=== PATIENT | male | born 1945 | race Caucasian/White ===

== ENCOUNTER 2016-12-13 12:08 | Emergency (ER) | payer MEDICARE, MEDICAID ==
[~2016-12-13] VITALS: Ht 180.3 cm; Wt 95.0 kg
[2016-12-13] MEDS ORDERED: OMEP20 PO (12:24)
[2016-12-13] MEDS ORDERED: POTA10CA44 PO (12:24)
[2016-12-13] MEDS ORDERED: HYDR-3971 PO (12:24)
[2016-12-13] MEDS ORDERED: SERT50TA12 PO (12:24)
[2016-12-13] MEDS ORDERED: ASPI81 PO (12:24)
[2016-12-13] MEDS ORDERED: PENT400 PO (12:24)
[2016-12-13] MEDS ORDERED: FURO20 PO (12:24)
[2016-12-13] MEDS ORDERED: METO-323 PO (12:24)
[2016-12-13] MEDS ORDERED: DSS100 PO (12:24)
[2016-12-13] MEDS ORDERED: IPRA4AER IH (12:24)
[2016-12-13] MEDS ORDERED: LEVO150 PO (12:24)
[2016-12-13] MEDS ORDERED: TAMS0.4C32 PO (12:24)
[2016-12-13 12:55] LABS: BASOPHILS % (AUTO) 0.7 % (0.0-2.0); EOSINOPHILS % (AUTO) 1.7 % (1.0-6.0); HEMATOCRIT 36.3 % (41-53); HEMOGLOBIN 11.7 g/dL (13.5-17.5); LYMPHOCYTES # (AUTO) 1.8 K/uL (1.0-4.8); LYMPHOCYTES % (AUTO) 17.2 % (22.0-44.0); MEAN CORPUSCULAR HEMOGLOBIN 25.2 pg (26.0-34.0); MEAN CORPUSCULAR HGB CONC 32.3 G/dL (31.0-37.0); MEAN CORPUSCULAR VOLUME 78 fL (80-100); MONOCYTES # (AUTO) 0.7 K/uL (0.1-1.0); MONOCYTES % (AUTO) 6.3 % (2.0-9.0); NEUTROPHILS # (AUTO) 7.9 K/uL (1.8-7.7); NEUTROPHILS % (AUTO) 74.1 % (40.0-70.0); PLATELET COUNT (AUTO) 343 K/uL (150-450); RED BLOOD CELL COUNT(AUTO) 4.66 MIL/uL (4.50-5.90); RED CELL DISTRIBUTION WIDTH 19.4 % (11.5-14.5); WHITE BLOOD COUNT (AUTO) 10.7 K/uL (4.5-11.0)
[2016-12-13 13:09] LABS: ANION GAP 10 mmol/L (8-16); CALCIUM, TOTAL 8.8 mg/dL (8.8-10.5); CARBON DIOXIDE 27 mmol/L (22-29); CHLORIDE 101 mmol/L (98-107); CREATININE 0.83 mg/dL (0.60-1.30); GLOMERULAR FILTR. RATE CALC > 60 mL/min (>60); POTASSIUM 3.6 mmol/L (3.5-5.1); SODIUM SERUM 138 mmol/L (136-145); UREA NITROGEN, BLOOD 19 mg/dL (7-18)
[2016-12-13 13:18] LABS: ALANINE AMINOTRANSFERASE 13 U/L (12-78); ALBUMIN 3.1 g/dL (3.4-5.0); ASPARTATE AMINOTRANSFERASE 13 U/L (15-37); BILIRUBIN,TOTAL 0.3 mg/dL (0.1-1.0); TOTAL PROTEIN, SERUM 8.9 g/dL (6.4-8.2)
[2016-12-13 13:23] LABS: RBC MORPHOLOGY COMMENT ABNORMAL RBC MORPH
[2016-12-13 15:30] VITALS: BP 128/69
== END 2016-12-13 15:36 | disposition home or self-care (01) ==
LOC: EEVIPCON 12:12 → EMS 12:12
DX: F41.9 Anxiety disorder, unspecified (principal); F32.9 Major depressive disorder, single episode, unspecified; E11.9 Type 2 diabetes mellitus without complications; I10 Essential (primary) hypertension; E03.9 Hypothyroidism, unspecified; Z79.82 Long term (current) use of aspirin
CPT/HCPCS: 36415; 80053; 85025; 99284; G0480

== ENCOUNTER 2017-05-23 11:39 | Inpatient (IN) | payer MEDICARE, MEDICAID, OTHER ==
[~2017-05-23] VITALS: Ht 180.3 cm; Wt 87.0 kg
[~2017-05-23 11:39] MED LIST: ACET-2902 PO; ATOR20TA86 PO; AUD NEB; BUDE0.5A3 NEB; DSS100 PO; FURO20 PO; IPRA4AER IH; IPRNEB NEB; LEVO150 PO; LISI-661 PO; METO25XL PO; MV-M1TAB2 PO; OMEP20 PO; ONDA4 PO; POTA10CA44 PO; RISP.5 PO; SERT50TA12 PO; TAMS0.4C32 PO; ZOLP5 PO
[2017-05-23] MEDS ORDERED: ALBUTEROL SULFATE 5 MG/ML 20 ML NEB SOLN [BULK] NEB ONE ×2 (12:00→15:00)
[2017-05-23] MEDS ORDERED: IPRATROPIUM BROMIDE 0.5 MG/2.5 ML NEB SOLUTION NEB ONE ×2 (12:00→15:00)
[2017-05-23 12:12] LABS: GLUCOSE,POINT OF CARE 83 MG/DL (70-110)
[2017-05-23 12:20] LABS: BASOPHILS % (AUTO) 0.1 % (0.0-2.0); EOSINOPHILS % (AUTO) 0.5 % (1.0-6.0); HEMATOCRIT 30.6 % (41-53); HEMOGLOBIN 10.2 g/dL (13.5-17.5); LYMPHOCYTES # (AUTO) 0.9 K/uL (1.0-4.8); LYMPHOCYTES % (AUTO) 4.9 % (22.0-44.0); MEAN CORPUSCULAR HEMOGLOBIN 25.9 pg (26.0-34.0); MEAN CORPUSCULAR HGB CONC 33.3 G/dL (31.0-37.0); MEAN CORPUSCULAR VOLUME 78 fL (80-100); MONOCYTES # (AUTO) 0.9 K/uL (0.1-1.0); MONOCYTES % (AUTO) 5.1 % (2.0-9.0); NEUTROPHILS # (AUTO) 16.3 K/uL (1.8-7.7); PLATELET COUNT (AUTO) 384 K/uL (150-450); RED BLOOD CELL COUNT(AUTO) 3.94 MIL/uL (4.50-5.90); RED CELL DISTRIBUTION WIDTH 19.8 % (11.5-14.5); WHITE BLOOD COUNT (AUTO) 18.2 K/uL (4.5-11.0)
[2017-05-23 12:22] LABS: NEUTROPHILS % (AUTO) 89.4 % (40.0-70.0)
[2017-05-23 12:32] LABS: ANION GAP 7 mmol/L (8-16); CALCIUM, TOTAL 10.4 mg/dL (8.8-10.5); CARBON DIOXIDE 30 mmol/L (22-29); CHLORIDE 97 mmol/L (98-107); CREATININE 0.76 mg/dL (0.60-1.30); GLOMERULAR FILTR. RATE CALC > 60 mL/min (>60); POTASSIUM 3.3 mmol/L (3.5-5.1); SODIUM SERUM 134 mmol/L (136-145); UREA NITROGEN, BLOOD 12 mg/dL (7-18)
[2017-05-23 12:38] LABS: ALANINE AMINOTRANSFERASE 23 U/L (12-78); ALBUMIN 1.9 g/dL (3.4-5.0); ASPARTATE AMINOTRANSFERASE 23 U/L (15-37); BILIRUBIN,TOTAL 0.4 mg/dL (0.1-1.0); CREATINE KINASE, TOTAL 20 U/L (39-308); RBC MORPHOLOGY COMMENT ABNORMAL RBC MORPH; TOTAL PROTEIN, SERUM 6.8 g/dL (6.4-8.2)
[2017-05-23 12:45] LABS: B-TYPE NATRIURETIC PEPTIDE 91 pg/mL (0-100)
[2017-05-23 12:59] LABS: THYROID STIMULATING HORMONE 3.78 uIU/mL (0.36-3.74)
[2017-05-23 13:49] LABS: ABG A-A DIFF O2 641.6 mmHg (10-20.0); ABG BASE EXCESS 4.7 mmol/L (-2.0-3.0); ABG OXYHEMOGLOBIN 34.6 % (94.0-100.0); ABG PCO2 49 mmHg (35-45); TEMPERATURE, FAHRENHEIT, BG 98.6 FAHREN (96.0-98.6)
[2017-05-23 13:51] LABS: ALLEN TEST, BLOOD GAS Positive
[2017-05-23] MEDS ORDERED: SODIUM CHLORIDE 0.9% 500 ML IV ONE (14:00)
[2017-05-23] MEDS ORDERED: LEVOFLOXACIN 750 MG/D5% WATER 150 ML IV ONE (14:00)
[2017-05-23] MEDS ORDERED: PIPERACILLIN/TAZO 3.375 GM/D5W 50 ML IV ONE (14:00)
[2017-05-23] MEDS ORDERED: POTASSIUM CHLORIDE 20 MEQ ER TABLET PO ONE (14:30)
[2017-05-23 14:40] LABS: ADD UA MICROSCOPIC NO; APPEARANCE,URINE CLEAR (CLEAR); GLUCOSE, URINE (UA) NEGATIVE (NEGATIVE); KETONES,URINE NEGATIVE (NEGATIVE); LEUKOCYTE ESTERASE ,URINE NEGATIVE (NEGATIVE); OCCULT BLOOD,URINE NEGATIVE (NEGATIVE); PH,URINE 6.5 (5.0-8.0); PROTEIN,URINE NEGATIVE (NEGATIVE)
[2017-05-23 16:26] LABS: ABG BASE EXCESS 2.7 mmol/L (-2.0-3.0); ABG HCO3 25.5 mmol/L (22.0-26.0); ABG PCO2 53 mmHg (35-45); ABG PH 7.345 (7.35-7.450); TEMPERATURE, FAHRENHEIT, BG 98.6 FAHREN (96.0-98.6)
[2017-05-23 16:27] LABS: ABG A-A DIFF O2 629.5 mmHg (10-20.0)
[2017-05-23 16:29] LABS: ALLEN TEST, BLOOD GAS POS
[2017-05-23] MEDS ORDERED: MAGNESIUM HYDROXIDE SUSPENSION 30 ML UDCUP PO PRN (16:45)
[2017-05-23] MEDS ORDERED: *CLINICAL-LEVOFLOXACIN IVPB DOSING CLINICAL ONE ×2 (16:45)
[2017-05-23] MEDS ORDERED: BISACODYL 10 MG RECTAL RECTAL SUPPOSITORY PR PRN (16:45)
[2017-05-23] MEDS ORDERED: ONDANSETRON HCL 4 MG/2 ML VIAL IVP PRN (16:45)
[2017-05-23 17:37] VITALS: BP 93/50
[2017-05-23] MEDS: IPRATROPIUM BROMIDE 0.5 MG/2.5 ML NEB SOLUTION NEB SCH ×2 (19:48→23:25)
[2017-05-23] MEDS: ALBUTEROL SULFATE 2.5 MG/0.5 ML NEB SOLUTION NEB SCH ×2 (19:48→23:25)
[2017-05-23 20:00] VITALS: BP 103/53
[2017-05-23] MEDS ORDERED: SODIUM CHLORIDE 0.9% 250 ML IV ONE (21:19)
[2017-05-23] MEDS: PIPERACILLIN/TAZO 3.375 GM/D5W 50 ML IV SCH (21:22)
[2017-05-23] MEDS: DOCUSATE SODIUM 100 MG CAPSULE PO SCH (21:23)
[2017-05-24] VITALS (7 sets, daily range): BP systolic 93–110; BP diastolic 48–59
[2017-05-24] MEDS: HEPARIN SODIUM,PORCINE 5,000 UNITS/ML VIAL SQ SCH ×3 (00:55→15:30)
[2017-05-24] MEDS: PIPERACILLIN/TAZO 3.375 GM/D5W 50 ML IV SCH ×4 (02:40→20:28)
[2017-05-24] MEDS: ALBUTEROL SULFATE 2.5 MG/0.5 ML NEB SOLUTION NEB SCH ×6 (02:50→23:12)
[2017-05-24] MEDS: IPRATROPIUM BROMIDE 0.5 MG/2.5 ML NEB SOLUTION NEB SCH ×6 (02:50→23:12)
[2017-05-24 05:08] LABS: EOSINOPHILS % (AUTO) 0.1 % (1.0-6.0); HEMATOCRIT 25.9 % (41-53); HEMOGLOBIN 8.6 g/dL (13.5-17.5); LYMPHOCYTES # (AUTO) 0.8 K/uL (1.0-4.8); LYMPHOCYTES % (AUTO) 4.1 % (22.0-44.0); MEAN CORPUSCULAR HEMOGLOBIN 26.1 pg (26.0-34.0); MEAN CORPUSCULAR HGB CONC 33.2 G/dL (31.0-37.0); MEAN CORPUSCULAR VOLUME 79 fL (80-100); MONOCYTES % (AUTO) 4.8 % (2.0-9.0); NEUTROPHILS # (AUTO) 18.4 K/uL (1.8-7.7); PLATELET COUNT (AUTO) 345 K/uL (150-450); RED BLOOD CELL COUNT(AUTO) 3.29 MIL/uL (4.50-5.90); RED CELL DISTRIBUTION WIDTH 20.1 % (11.5-14.5); WHITE BLOOD COUNT (AUTO) 20.3 K/uL (4.5-11.0)
[2017-05-24 06:10] LABS: RBC MORPHOLOGY COMMENT ABNORMAL RBC MORPH
[2017-05-24 06:11] LABS: HEMOGLOBIN A1C 6.4 % (4.5-6.2)
[2017-05-24 06:12] LABS: ANION GAP 5 mmol/L (8-16); CALCIUM, TOTAL 10.2 mg/dL (8.8-10.5); CARBON DIOXIDE 32 mmol/L (22-29); CHLORIDE 99 mmol/L (98-107); CHOL/HDL RATIO 2.4 (4.2-7.3); CREATINE KINASE, TOTAL 10 U/L (39-308); CREATININE 0.72 mg/dL (0.60-1.30); GLOMERULAR FILTR. RATE CALC > 60 mL/min (>60); SODIUM SERUM 136 mmol/L (136-145); UREA NITROGEN, BLOOD 11 mg/dL (7-18)
[2017-05-24] MEDS: LEVOTHYROXINE SODIUM 150 MCG TABLET PO SCH (06:29)
[2017-05-24] MEDS ORDERED: MAGNESIUM SULFATE 2 GM in DEXTROSE 5%-WATER 50 ML IV PRN (08:15)
[2017-05-24] MEDS ORDERED: MAGNESIUM SULFATE 4 GM/WATER 100 ML IV PRN (08:15)
[2017-05-24 08:17] LABS: GLUCOSE,POINT OF CARE 90 MG/DL (70-110)
[2017-05-24 08:17] LABS: GLUCOSE,POINT OF CARE 96 MG/DL (70-110)
[2017-05-24] MEDS: TAMSULOSIN HCL 0.4 MG CAPSULE PO SCH (08:44)
[2017-05-24] MEDS: POTASSIUM CHLORIDE 20 MEQ ER TABLET PO PRN ×2 (08:44→17:52)
[2017-05-24] MEDS: MAGNESIUM OXIDE 400 MG TABLET PO PRN ×3 (08:46→20:33)
[2017-05-24] MEDS: DOCUSATE SODIUM 100 MG CAPSULE PO SCH ×2 (08:49→15:28)
[2017-05-24] MEDS: PANTOPRAZOLE SODIUM 40 MG/VIAL IVP SCH (08:49)
[2017-05-24 08:55] LABS: ALBUMIN 1.6 g/dL (3.4-5.0)
[2017-05-24] MEDS: LEVOFLOXACIN 750 MG/D5% WATER 150 ML IV SCH (15:28)
[2017-05-24] MEDS: DOCUSATE SODIUM 250 MG CAPSULE PO SCH (20:33)
[2017-05-24] MEDS ORDERED: SODIUM CHLORIDE 0.9% 50 ML ONE (20:35)
[2017-05-25] VITALS (8 sets, daily range): BP systolic 85–104; BP diastolic 36–50
[2017-05-25] MEDS: HEPARIN SODIUM,PORCINE 5,000 UNITS/ML VIAL SQ SCH ×3 (00:15→17:54)
[2017-05-25] MEDS: POTASSIUM CHLORIDE 20 MEQ ER TABLET PO PRN ×2 (00:49→08:36)
[2017-05-25] MEDS: PIPERACILLIN/TAZO 3.375 GM/D5W 50 ML IV SCH ×4 (01:15→20:22)
[2017-05-25] MEDS: ALBUTEROL SULFATE 2.5 MG/0.5 ML NEB SOLUTION NEB SCH ×6 (03:43→22:27)
[2017-05-25] MEDS: IPRATROPIUM BROMIDE 0.5 MG/2.5 ML NEB SOLUTION NEB SCH ×6 (03:43→22:27)
[2017-05-25] MEDS: LEVOTHYROXINE SODIUM 150 MCG TABLET PO SCH (05:44)
[2017-05-25 06:59] LABS: BASOPHILS # (AUTO) 0.01 K/uL (0.00-0.20); BASOPHILS % (AUTO) 0.1 % (0.0-2.0); HEMATOCRIT 25.5 % (41-53); HEMOGLOBIN 8.5 g/dL (13.5-17.5); LYMPHOCYTES # (AUTO) 0.7 K/uL (1.0-4.8); LYMPHOCYTES % (AUTO) 4.2 % (22.0-44.0); MEAN CORPUSCULAR HGB CONC 33.4 G/dL (31.0-37.0); MEAN CORPUSCULAR VOLUME 78 fL (80-100); MONOCYTES # (AUTO) 0.7 K/uL (0.1-1.0); MONOCYTES % (AUTO) 4.3 % (2.0-9.0); NEUTROPHILS # (AUTO) 15.9 K/uL (1.8-7.7); PLATELET COUNT (AUTO) 360 K/uL (150-450); RED BLOOD CELL COUNT(AUTO) 3.27 MIL/uL (4.50-5.90); RED CELL DISTRIBUTION WIDTH 20.1 % (11.5-14.5); WHITE BLOOD COUNT (AUTO) 17.5 K/uL (4.5-11.0)
[2017-05-25 07:04] LABS: ANION GAP 0 mmol/L (8-16); CALCIUM, TOTAL 10.3 mg/dL (8.8-10.5); CARBON DIOXIDE 35 mmol/L (22-29); CHLORIDE 102 mmol/L (98-107); CREATININE 0.81 mg/dL (0.60-1.30); GLOMERULAR FILTR. RATE CALC > 60 mL/min (>60); NEUTROPHILS % (AUTO) 90.9 % (40.0-70.0); POTASSIUM 3.3 mmol/L (3.5-5.1); SODIUM SERUM 137 mmol/L (136-145); UREA NITROGEN, BLOOD 11 mg/dL (7-18)
[2017-05-25 07:38] LABS: PROCALCITONIN (PCT) 0.29 ng/mL (<0.50)
[2017-05-25] MEDS: TAMSULOSIN HCL 0.4 MG CAPSULE PO SCH (08:36)
[2017-05-25] MEDS: PANTOPRAZOLE SODIUM 40 MG/VIAL IVP SCH (08:36)
[2017-05-25] MEDS: DOCUSATE SODIUM 250 MG CAPSULE PO SCH ×3 (08:36→21:17)
[2017-05-25 08:53] LABS: RBC MORPHOLOGY COMMENT ABNORMAL RBC MORPH
[2017-05-25] MEDS ORDERED: SODIUM CHLORIDE 0.9% 500 ML IV ONE (12:00)
[2017-05-25] MEDS ORDERED: ATROPINE SULFATE 0.1 MG/ML 10 ML SYRINGE IVP ONE (12:00)
[2017-05-25] MEDS: LEVOFLOXACIN 750 MG/D5% WATER 150 ML IV SCH (15:15)
[2017-05-25] MEDS: ACETAMINOPHEN 325 MG TABLET PO PRN (15:43)
[2017-05-25] MEDS: MUPIROCIN CALCIUM 2% 22 GM OINTMENT NASAL SCH (21:18)
[2017-05-26] VITALS (8 sets, daily range): BP systolic 86–146; BP diastolic 40–79
[2017-05-26] MEDS: HEPARIN SODIUM,PORCINE 5,000 UNITS/ML VIAL SQ SCH ×3 (00:09→16:27)
[2017-05-26] MEDS ORDERED: SODIUM CHLORIDE 0.9% 250 ML IV ONE (02:30)
[2017-05-26] MEDS: PIPERACILLIN/TAZO 3.375 GM/D5W 50 ML IV SCH ×4 (02:34→20:59)
[2017-05-26] MEDS: IPRATROPIUM BROMIDE 0.5 MG/2.5 ML NEB SOLUTION NEB SCH ×6 (03:55→23:02)
[2017-05-26] MEDS: ALBUTEROL SULFATE 2.5 MG/0.5 ML NEB SOLUTION NEB SCH ×6 (03:55→23:02)
[2017-05-26 06:06] LABS: ANION GAP 3 mmol/L (8-16); CALCIUM, TOTAL 10.4 mg/dL (8.8-10.5); CARBON DIOXIDE 32 mmol/L (22-29); CHLORIDE 101 mmol/L (98-107); CREATININE 0.87 mg/dL (0.60-1.30); GLOMERULAR FILTR. RATE CALC > 60 mL/min (>60); POTASSIUM 3.3 mmol/L (3.5-5.1); SODIUM SERUM 136 mmol/L (136-145); UREA NITROGEN, BLOOD 9 mg/dL (7-18)
[2017-05-26] MEDS: POTASSIUM CHLORIDE 20 MEQ ER TABLET PO PRN ×2 (06:40→11:32)
[2017-05-26] MEDS: LEVOTHYROXINE SODIUM 150 MCG TABLET PO SCH (06:40)
[2017-05-26 07:26] LABS: BASOPHILS % (AUTO) 0.2 % (0.0-2.0); EOSINOPHILS % (AUTO) 0.9 % (1.0-6.0); HEMATOCRIT 26.7 % (41-53); HEMOGLOBIN 8.8 g/dL (13.5-17.5); LYMPHOCYTES # (AUTO) 0.7 K/uL (1.0-4.8); LYMPHOCYTES % (AUTO) 3.6 % (22.0-44.0); MEAN CORPUSCULAR HGB CONC 33.1 G/dL (31.0-37.0); MEAN CORPUSCULAR VOLUME 79 fL (80-100); MONOCYTES # (AUTO) 0.9 K/uL (0.1-1.0); MONOCYTES % (AUTO) 5.1 % (2.0-9.0); NEUTROPHILS # (AUTO) 16.5 K/uL (1.8-7.7); PLATELET COUNT (AUTO) 375 K/uL (150-450); RED BLOOD CELL COUNT(AUTO) 3.39 MIL/uL (4.50-5.90); RED CELL DISTRIBUTION WIDTH 19.6 % (11.5-14.5); WHITE BLOOD COUNT (AUTO) 18.3 K/uL (4.5-11.0)
[2017-05-26 07:29] LABS: NEUTROPHILS % (AUTO) 90.2 % (40.0-70.0)
[2017-05-26] MEDS: DOCUSATE SODIUM 250 MG CAPSULE PO SCH ×3 (08:01→21:00)
[2017-05-26] MEDS: PANTOPRAZOLE SODIUM 40 MG/VIAL IVP SCH (08:01)
[2017-05-26] MEDS: MUPIROCIN CALCIUM 2% 22 GM OINTMENT NASAL SCH ×2 (08:01→21:00)
[2017-05-26] MEDS: TAMSULOSIN HCL 0.4 MG CAPSULE PO SCH (08:01)
[2017-05-26] MEDS: ACETAMINOPHEN 325 MG TABLET PO PRN (11:39)
[2017-05-26] MEDS: LEVOFLOXACIN 750 MG/D5% WATER 150 ML IV SCH (14:13)
[2017-05-26] MEDS ORDERED: HALOPERIDOL LACTATE 5 MG/ML VIAL IVP ONE (15:45)
[2017-05-27] MEDS: HEPARIN SODIUM,PORCINE 5,000 UNITS/ML VIAL SQ SCH ×4 (00:10→23:42)
[2017-05-27] MEDS: PIPERACILLIN/TAZO 3.375 GM/D5W 50 ML IV SCH ×4 (01:20→20:32)
[2017-05-27] MEDS: ALBUTEROL SULFATE 2.5 MG/0.5 ML NEB SOLUTION NEB SCH ×6 (03:21→23:15)
[2017-05-27] MEDS: IPRATROPIUM BROMIDE 0.5 MG/2.5 ML NEB SOLUTION NEB SCH ×6 (03:21→23:15)
[2017-05-27 03:44] VITALS: BP 92/52
[2017-05-27] MEDS: LEVOTHYROXINE SODIUM 150 MCG TABLET PO SCH (05:28)
[2017-05-27 07:56] VITALS: BP 119/62
[2017-05-27] MEDS: TAMSULOSIN HCL 0.4 MG CAPSULE PO SCH (09:25)
[2017-05-27] MEDS: PANTOPRAZOLE SODIUM 40 MG/VIAL IVP SCH (09:25)
[2017-05-27] MEDS: DOCUSATE SODIUM 250 MG CAPSULE PO SCH ×3 (09:25→20:51)
[2017-05-27] MEDS: ACETAMINOPHEN 325 MG TABLET PO PRN (09:28)
[2017-05-27] MEDS: MUPIROCIN CALCIUM 2% 22 GM OINTMENT NASAL SCH ×2 (09:29→20:51)
[2017-05-27 11:50] VITALS: BP 91/55
[2017-05-27 16:27] VITALS: BP 94/55
[2017-05-27 20:01] VITALS: BP 95/58
[2017-05-27] MEDS: LEVOFLOXACIN 750 MG/D5% WATER 150 ML IV SCH (21:48)
[2017-05-27 23:15] VITALS: BP 103/59
[2017-05-28] MEDS: PIPERACILLIN/TAZO 3.375 GM/D5W 50 ML IV SCH ×4 (02:59→20:20)
[2017-05-28] MEDS: IPRATROPIUM BROMIDE 0.5 MG/2.5 ML NEB SOLUTION NEB SCH ×6 (03:17→22:58)
[2017-05-28] MEDS: ALBUTEROL SULFATE 2.5 MG/0.5 ML NEB SOLUTION NEB SCH ×6 (03:17→22:58)
[2017-05-28 04:37] VITALS: BP 112/66
[2017-05-28] MEDS: LEVOTHYROXINE SODIUM 150 MCG TABLET PO SCH (06:11)
[2017-05-28 07:32] VITALS: BP 102/55
[2017-05-28] MEDS: PANTOPRAZOLE SODIUM 40 MG/VIAL IVP SCH (08:40)
[2017-05-28] MEDS: DOCUSATE SODIUM 250 MG CAPSULE PO SCH ×3 (08:40→20:20)
[2017-05-28] MEDS: TAMSULOSIN HCL 0.4 MG CAPSULE PO SCH (08:40)
[2017-05-28] MEDS: HEPARIN SODIUM,PORCINE 5,000 UNITS/ML VIAL SQ SCH ×2 (08:40→16:13)
[2017-05-28] MEDS: MUPIROCIN CALCIUM 2% 22 GM OINTMENT NASAL SCH ×2 (08:41→20:20)
[2017-05-28 11:21] VITALS: BP 115/64
[2017-05-28] MEDS ORDERED: SODIUM CHLORIDE 0.9% 100 ML ONE (15:40)
[2017-05-28 15:41] VITALS: BP 120/62
[2017-05-28] MEDS ORDERED: DOCU250C91 PO (16:05)
[2017-05-28] MEDS: LEVOFLOXACIN 750 MG/D5% WATER 150 ML IV SCH (16:13)
[2017-05-28 19:54] VITALS: BP 93/61
[2017-05-28] MEDS ORDERED: VANCOMYCIN HCL 1.5 GM in DEXTROSE 5%-WATER 250 ML IV ONE (23:00)
[2017-05-29] VITALS (7 sets, daily range): BP systolic 104–125; BP diastolic 55–68
[2017-05-29] MEDS: HEPARIN SODIUM,PORCINE 5,000 UNITS/ML VIAL SQ SCH ×3 (00:37→15:49)
[2017-05-29] MEDS: ALBUTEROL SULFATE 2.5 MG/0.5 ML NEB SOLUTION NEB SCH ×6 (02:59→23:11)
[2017-05-29] MEDS: IPRATROPIUM BROMIDE 0.5 MG/2.5 ML NEB SOLUTION NEB SCH ×6 (02:59→23:10)
[2017-05-29] MEDS: PIPERACILLIN/TAZO 3.375 GM/D5W 50 ML IV SCH ×4 (04:13→20:17)
[2017-05-29] MEDS: LEVOTHYROXINE SODIUM 150 MCG TABLET PO SCH (05:37)
[2017-05-29] MEDS: VANCOMYCIN HCL 1.5 GM in DEXTROSE 5%-WATER 250 ML IV SCH ×2 (07:42→20:17)
[2017-05-29] MEDS: PANTOPRAZOLE SODIUM 40 MG/VIAL IVP SCH (08:53)
[2017-05-29] MEDS: MUPIROCIN CALCIUM 2% 22 GM OINTMENT NASAL SCH ×2 (09:00→20:18)
[2017-05-29] MEDS: TAMSULOSIN HCL 0.4 MG CAPSULE PO SCH (09:00)
[2017-05-29] MEDS: DOCUSATE SODIUM 250 MG CAPSULE PO SCH ×3 (09:00→20:17)
[2017-05-29] MEDS: MULTIVITAMINS WITH MINERALS, THERAPEUTIC TABLET PO SCH (09:03)
[2017-05-29] MEDS: LEVOFLOXACIN 750 MG/D5% WATER 150 ML IV SCH (15:48)
[2017-05-30] MEDS ORDERED: SODIUM CHLORIDE 0.9% 250 ML IV ONE ×2 (00:07→08:17)
[2017-05-30] MEDS: HEPARIN SODIUM,PORCINE 5,000 UNITS/ML VIAL SQ SCH ×3 (01:16→16:21)
[2017-05-30] MEDS: PIPERACILLIN/TAZO 3.375 GM/D5W 50 ML IV SCH ×4 (02:06→20:22)
[2017-05-30] MEDS: ALBUTEROL SULFATE 2.5 MG/0.5 ML NEB SOLUTION NEB SCH ×6 (03:07→22:52)
[2017-05-30] MEDS: IPRATROPIUM BROMIDE 0.5 MG/2.5 ML NEB SOLUTION NEB SCH ×6 (03:07→22:52)
[2017-05-30 04:48] VITALS: BP 113/59
[2017-05-30] MEDS: LEVOTHYROXINE SODIUM 150 MCG TABLET PO SCH (05:53)
[2017-05-30 07:11] LABS: ANION GAP 4 mmol/L (8-16); CARBON DIOXIDE 40 mmol/L (22-29); CHLORIDE 97 mmol/L (98-107); CREATININE 0.74 mg/dL (0.60-1.30); GLOMERULAR FILTR. RATE CALC > 60 mL/min (>60); SODIUM SERUM 141 mmol/L (136-145); UREA NITROGEN, BLOOD 14 mg/dL (7-18)
[2017-05-30 07:27] LABS: POTASSIUM 2.4 mmol/L (3.5-5.1)
[2017-05-30 07:30] VITALS: BP 104/58
[2017-05-30] MEDS: POTASSIUM CHL 10 MEQ/WATER 50 ML IV PRN ×6 (08:04→20:22)
[2017-05-30] MEDS: PANTOPRAZOLE SODIUM 40 MG/VIAL IVP SCH (08:05)
[2017-05-30] MEDS: MUPIROCIN CALCIUM 2% 22 GM OINTMENT NASAL SCH ×2 (08:06→20:21)
[2017-05-30] MEDS: VANCOMYCIN HCL 1.5 GM in DEXTROSE 5%-WATER 250 ML IV SCH (08:53)
[2017-05-30] MEDS: DOCUSATE SODIUM 250 MG CAPSULE PO SCH ×3 (08:54→20:21)
[2017-05-30] MEDS: TAMSULOSIN HCL 0.4 MG CAPSULE PO SCH (09:00)
[2017-05-30] MEDS: MULTIVITAMINS WITH MINERALS, THERAPEUTIC TABLET PO SCH (09:00)
[2017-05-30 11:05] VITALS: BP 116/60
[2017-05-30] MEDS ORDERED: POTASSIUM CHLORIDE 20 MEQ ER TABLET PO PRN (12:45)
[2017-05-30] MEDS ORDERED: POTASSIUM CHL 10 MEQ/WATER 50 ML IV PRN (12:45)
[2017-05-30] MEDS: LEVOFLOXACIN 750 MG/D5% WATER 150 ML IV SCH (16:03)
[2017-05-30] MEDS: VANCOMYCIN HCL 1 GM/D5% WATER 200 ML IV SCH (16:14)
[2017-05-30 19:32] VITALS: BP 116/56
[2017-05-30 23:34] VITALS: BP 122/58
[2017-05-31] MEDS: VANCOMYCIN HCL 1 GM/D5% WATER 200 ML IV SCH ×3 (00:25→16:00)
[2017-05-31] MEDS: HEPARIN SODIUM,PORCINE 5,000 UNITS/ML VIAL SQ SCH ×3 (00:26→16:00)
[2017-05-31] MEDS: PIPERACILLIN/TAZO 3.375 GM/D5W 50 ML IV SCH ×3 (02:20→14:07)
[2017-05-31] MEDS: IPRATROPIUM BROMIDE 0.5 MG/2.5 ML NEB SOLUTION NEB SCH ×4 (03:28→15:00)
[2017-05-31] MEDS: ALBUTEROL SULFATE 2.5 MG/0.5 ML NEB SOLUTION NEB SCH ×4 (03:28→15:00)
[2017-05-31] MEDS: POTASSIUM CHL 10 MEQ/WATER 50 ML IV PRN ×3 (03:43→10:55)
[2017-05-31 06:10] VITALS: BP 131/55
[2017-05-31] MEDS: LEVOTHYROXINE SODIUM 150 MCG TABLET PO SCH (06:14)
[2017-05-31 07:17] LABS: ALBUMIN 1.8 g/dL (3.4-5.0); ANION GAP -2 mmol/L (8-16); CHLORIDE 100 mmol/L (98-107); CREATININE 0.67 mg/dL (0.60-1.30); GLOMERULAR FILTR. RATE CALC > 60 mL/min (>60); POTASSIUM 3.2 mmol/L (3.5-5.1); SODIUM SERUM 142 mmol/L (136-145); UREA NITROGEN, BLOOD 13 mg/dL (7-18)
[2017-05-31 07:27] LABS: CARBON DIOXIDE 44 mmol/L (22-29)
[2017-05-31 07:45] VITALS: BP 100/55
[2017-05-31] MEDS: PANTOPRAZOLE SODIUM 40 MG/VIAL IVP SCH (08:42)
[2017-05-31] MEDS: DOCUSATE SODIUM 250 MG CAPSULE PO SCH ×2 (09:00→16:00)
[2017-05-31] MEDS: MULTIVITAMINS WITH MINERALS, THERAPEUTIC TABLET PO SCH (09:00)
[2017-05-31] MEDS: TAMSULOSIN HCL 0.4 MG CAPSULE PO SCH (09:00)
[2017-05-31] MEDS: MUPIROCIN CALCIUM 2% 22 GM OINTMENT NASAL SCH (09:38)
[2017-05-31 11:09] VITALS: BP 109/61
[2017-05-31] MEDS ORDERED: ALBUTEROL SULFATE/IPRATROPIUM 100-20 MCG/SPRAY 4 GM INHALER IH SCH (13:00)
[2017-05-31] MEDS ORDERED: ZOLPIDEM TARTRATE 5 MG TABLET PO PRN (13:00)
[2017-05-31] MEDS: LEVOFLOXACIN 750 MG/D5% WATER 150 ML IV SCH (15:00)
[2017-05-31 16:00] VITALS: BP 116/62
[2017-05-31] MEDS ORDERED: DOCUSATE SODIUM 250 MG CAPSULE PO SCH (16:00)
[2017-05-31] MEDS ORDERED: RisperiDONE 0.5 MG TABLET PO SCH (21:00)
[2017-05-31] MEDS ORDERED: BUDESONIDE 0.5 MG/2 ML NEB SOLUTION NEB SCH (21:00)
[2017-05-31] MEDS ORDERED: ATORVASTATIN CALCIUM 20 MG TABLET PO SCH (21:00)
[2017-06-01] MEDS ORDERED: FUROSEMIDE 20 MG TABLET PO SCH (09:00)
[2017-06-01] MEDS ORDERED: SERTRALINE HCL 50 MG TABLET PO SCH (09:00)
[2017-06-01] MEDS ORDERED: METOPROLOL SUCCINATE 25 MG ER TABLET PO SCH (09:00)
[2017-06-01] MEDS ORDERED: OMEPRAZOLE 20 MG CAPSULE PO SCH (09:00)
[2017-06-01] MEDS ORDERED: LISINOPRIL 10 MG TABLET PO SCH (09:00)
== END 2017-05-31 19:40 | disposition home or self-care (01) | DRG 871 ==
LOC: EMS 11:41 → ICU 15:04 → 5S 05-24 16:25 → 5N 05-27 21:30 → 6N 05-31 13:00
PROVIDERS: ADMIT Internal Medicine Geriatric Medicine; ATTEND Internal Medicine Geriatric Medicine
PROC: 5A09557 Assistance with Respiratory Ventilation, Greater than 96 Consecutive Hours, Continuous Positive Airway Pressure (ICD-10-PCS; principal; 2017-05-23)
DX: A41.9 Sepsis, unspecified organism (principal); J18.9 Pneumonia, unspecified organism; J96.01 Acute respiratory failure with hypoxia; E43 Unspecified severe protein-calorie malnutrition; G93.40 Encephalopathy, unspecified; I11.0 Hypertensive heart disease with heart failure; C78.00 Secondary malignant neoplasm of unspecified lung; I82.621 Acute embolism and thrombosis of deep veins of right upper extremity; C79.70 Secondary malignant neoplasm of unspecified adrenal gland; C79.89 Secondary malignant neoplasm of other specified sites; I50.9 Heart failure, unspecified; E83.42 Hypomagnesemia; I45.89 Other specified conduction disorders; E87.1 Hypo-osmolality and hyponatremia; J44.0 Chronic obstructive pulmonary disease with (acute) lower respiratory infection; J44.1 Chronic obstructive pulmonary disease with (acute) exacerbation; C34.90 Malignant neoplasm of unspecified part of unspecified bronchus or lung; D64.9 Anemia, unspecified; E87.6 Hypokalemia; E03.9 Hypothyroidism, unspecified; E11.9 Type 2 diabetes mellitus without complications; E78.5 Hyperlipidemia, unspecified; F20.9 Schizophrenia, unspecified; F43.10 Post-traumatic stress disorder, unspecified; I07.1 Rheumatic tricuspid insufficiency; J84.10 Pulmonary fibrosis, unspecified; R00.1 Bradycardia, unspecified; N40.0 Benign prostatic hyperplasia without lower urinary tract symptoms; Z66 Do not resuscitate; Z86.73 Personal history of transient ischemic attack (TIA), and cerebral infarction without residual deficits; Z87.891 Personal history of nicotine dependence; Z68.26 Body mass index [BMI] 26.0-26.9, adult
CPT/HCPCS: 82306; 82607; 82746; 82805; 82962; 83036; 83735; 84132; 84145; 84439; 84443; 87040; 87081; 93005; 93306; 93971; 94640; 94644; 94660; 96365; 96375; 99291; C9113; J1644; J1956; J2543; J3370; J3480; J7040; J7050; J7060